=== PATIENT | male | born 1990 | race African-American/Black ===

== ENCOUNTER 2017-04-07 15:44 | Emergency (ER) | payer BC ==
[2017-04-07 16:41] VITALS: BP 132/74
[2017-04-07] MEDS ORDERED: Lidocaine 1% MPF* 2 ML VIAL INJ ONE (17:16)
[2017-04-07] MEDS ORDERED: cefTRIAXone VIAL(*) 250 MG VIAL IM ONE (17:16)
[2017-04-07] MEDS ORDERED: DOXYcycline CAP(*) 100 MG PO ONE (17:17)
--- NOTE | 2017-04-07 18:10 | UC ---
Complaint Male HPI - HPI Summary HPI Summary: THREE DAYS OF TENDER DRAINING BLISTER ON RIGHT SIDE SHAFT OF PENIS. NO HISTORY OF MRSA. NO NEW SEXUAL PARTNERS. HAD NEGATIVE STD TESTS ONE MONTH AGO. NO DISCHARGE FROM PENIS TIP. NO TESTICLE PAIN. NO FEVER. NO RASHES ANYWHERE ELSE. - History of Current Complaint Chief Complaint: [facility] Stated Complaint: PERSONAL Time Seen by Provider: 04/07/17 16:47 Hx Obtained From: Patient Onset/Duration: Gradual Onset, Lasting Days, Still Present Timing: Constant Severity Initially: Mild Severity Currently: Moderate Location: Penis Aggravating Factor(s): Palpation Alleviating Factor(s): Nothing Associated Signs And Symptoms: Negative: Back Pain, Fever, Hematuria, Dysuria, Constipation, Rectal Pain, Appetite, Nausea, Vomiting(# Of Episodes =), Penile Swelling, Penile Discharge - Allergies/Home Medications Allergies/Adverse Reactions: Allergies Allergy/AdvReac Type Severity Reaction Status Date / Time No Known Allergies Allergy Verified 04/07/17 16:40 PMH/Surg Hx/FS Hx/Imm Hx Previously Healthy: Yes - Surgical History Surgical History: Yes Surgery Procedure, Year, and Place: lung surgery as - Family History Known Family History: Negative: Blood Disorder - Social History Occupation: Student Lives: With Family Alcohol Use: Occasionally Substance Use Type: None Smoking Status (MU): Never Smoked Tobacco Review of Systems Constitutional: Negative Skin: Other - ABSCESS RIGHT SHAFT OF PENIS Eyes: Negative ENT: Negative Respiratory: Negative Cardiovascular: Negative Gastrointestinal: Negative Genitourinary: Negative Motor: Negative Neurovascular: Negative Musculoskeletal: Negative Neurological: Negative Psychological: Negative Is Patient Immunocompromised?: No All Other Systems Reviewed And Are Negative: Yes Physical Exam Triage Information Reviewed: Yes Appearance: Well-Appearing, No Pain Distress, Well-Nourished Vital Signs: Initial Vital Signs Temp 98.4 F 04/07/17 16:33 Pulse 91 04/07/17 16:33 Resp 28 04/07/17 16:33 BP 132/74 04/07/17 16:33 Vital Signs Reviewed: Yes Eye Exam: Normal ENT Exam: Normal ENT: Positive: Normal ENT inspection, Hearing grossly normal, Pharynx normal Dental Exam: Normal Neck exam: Normal Neck: Positive: Supple, Nontender, No Lymphadenopathy Respiratory Exam: Normal Respiratory: Positive: Chest non-tender, Lungs clear, Normal breath sounds, No respiratory distress, No accessory muscle use Cardiovascular Exam: Normal Cardiovascular: Positive: RRR, No Murmur, Pulses Normal Abdominal Exam: Normal Musculoskeletal Exam: Normal Neurological Exam: Normal Psychological Exam: Normal Skin: Positive: Other - TENDER FLUCTUANT ABSCESS RIGHT SHAFT OF PENIS WITH DRAINAGE Complaint Male Course/Dx - Differential Dx/Diagnosis Differential Diagnosis/HQI/PQRI: Other - STD; ABSCESS; CHANCRE Provider Diagnoses: ABSCESS RIGHT SHAFT OF PENIS WITH DRAINAGE Discharge - Discharge Plan Condition: Stable Disposition: HOME Prescriptions: DOXYcycline CAP(*) [DOXYcycline 100MG CAP(*)] 100 mg PO BID #20 cap Patient Education Materials: Sexually Transmitted Diseases (ED), Abscess (ED) Referrals: Arnold Mcgregor MD [Medical Doctor] - Images Perineum Male: 1 - TENDER FLUCTUANT ABSCESS RIGHT SHAFT OF PENIS WITH DRAINAGE
--- NOTE | 2017-04-10 10:47 | UC ---
Progress - Progress Note Progress Note: call patient if symptoms continue follow at [facility] or PCP Saundra Ruelas
== END 2017-04-07 18:04 | disposition home or self-care (01) ==
LOC: UCCORT 15:44
DX: N48.21 Abscess of corpus cavernosum and penis (principal)
CPT/HCPCS: 87070; 87077; 87205; 87491; 87591; 87640; 87641; 96372; 99202; A9270-GY; G0463; J0696